=== PATIENT | male | born 1955 | race Caucasian/White ===

== ENCOUNTER 2025-04-04 13:19 | Emergency (ER) | payer MEDICARE, SELFPAY ==
[2025-04-04] VITALS (7 sets, daily range): BP systolic 136–153; BP diastolic 79–99; BMI 22.3
[2025-04-04 13:35] LABS: Hematocrit 46.7 % (39.0-52.0); Hemoglobin 15.6 g/dL (13.0-18.0); Mean Corp Hgb Conc. 33.4 g/dL (33.0-37.0); Mean Corpuscular Volume 84.8 fL (80.0-94.0); Nucleated Red Blood Cells % 0 % (-); Platelet Count 231 10^3/uL (130-400); Red Cell Dist. Width 14.6 % (11.5-14.5)
[2025-04-04 13:49] LABS: ALT (SGPT) 27 U/L (0-50); AST (SGOT) 26 U/L (17-59); Albumin 4.7 g/dl (3.5-5.0); Alkaline Phosphatase 80 U/L (38-126); Blood Urea Nitrogen 22 mg/dl (9-20); Calcium 9.7 mg/dl (8.4-10.2); Carbon Dioxide 24 mmol/L (22-30); Chloride 107 mmol/L (98-107); Glucose 107 mg/dl (70-99); Potassium 4.3 mmol/L (3.5-5.1); Sodium 139 mmol/L (135-145); Total Protein 7.6 g/dl (6.3-8.2); eGFR > 60.00
[2025-04-04] MEDS: NSS 1000 IV (15:08)
[2025-04-04] MEDS: TORADOL 15 MG IV (15:09)
[2025-04-04] MEDS: DILAUDID 1 MG IV (15:09)
[2025-04-04] MEDS: ZOFRAN 4 MG IV (15:09)
--- NOTE | 2025-04-04 15:11 | ED.GENMED ---
History of Present Illness
General
Chief Complaint: Flank Pain
Source: patient, records, spouse and previous radiology exam
Exam Limitations: none
Time Seen by Provider: 04/04/25 14:27
Nursing documentation reviewed up to this point in time: agreed with
History of Present Illness
History of Present Illness:
69-year male left flank pain with left lower abdominal pain subacute onset is worsening over the past 4 days nausea without vomiting, no fevers, had a right sided ureteral stone requiring surgery Dr. De La Garza previously, he was told at that time that he
had stones in his left kidney and to be aware of any left-sided symptoms
Has had no pain meds at home
Past History
Past History
ED Past Medical History: Asthma, CAD, HTN and Hypercholesterolemia
ED Past Surgical History: Appendectomy and Cardiac (PTCA with stent)
Social History
Tobacco: Non-smoker
Alcohol: None
Drug: None
Personal:
Living: with family
Employment: Employed
Family History
Family History: Negative Early CAD or Sudden
Review of Systems
Review of Systems
All Other Systems: Not applicable
Constitutional: Denies fever or fatigue
EENT: Reports no symptoms
Respiratory: Reports no symptoms
Cardiac: Reports no symptoms
ABD/GI: Reports abdominal pain and nausea
: Reports flank pain and bleeding
Musculoskeletal: Reports no symptoms
Neurological: Reports no symptoms
Endocrine: Reports no symptoms
Course
Orders/Labs/Results
Orders:
Orders
04/04/25 13:24
CT Abd/pelvis Wo Iv Cont Urgent
Comment:
Reason For Exam: left flank pain
Urinalysis Reflex To Culture Urgent
Date Specimen was Collected: 04/04/25
Time Specimen was Collected: 13:25
04/04/25 13:29
Complete Blood Count/With Diff Urgent
Comprehensive Metabolic Panel Urgent
04/04/25 15:02
0.9% Sodium Chloride 1000 ml [Nss] 1,000 ml IV BOLUS
HYDROmorphone [Dilaudid] 1 mg IV NOW STA
Ketorolac [Toradol] 15 mg IV NOW STA
Ondansetron Injectable [Zofran] 4 mg IV NOW STA
Abnormal Lab Results
04/04/25
13:29
RDW 14.6 H %
(11.5-14.5)
MPV 10.7 H fL
(7.4-10.4)
BUN 22 H mg/dl
(9-20)
Glucose 107 H mg/dl
(70-99)
Total Bilirubin 1.6 H mg/dl
(0.2-1.3)
04/04/25 13:29
04/04/25 13:29
Vital Signs
Initial and Last Documented VS:
Initial Vital Signs
Temp Pulse Resp BP Pulse Ox
97.7 F 81 17 153/96 99
04/04/25 13:21 04/04/25 13:21 04/04/25 13:21 04/04/25 13:21 04/04/25 13:21
Last Documented Vital Signs
Temp Pulse Resp BP Pulse Ox
97.7 F 86 23 136/96 97
04/04/25 13:21 04/04/25 17:30 04/04/25 17:30 04/04/25 17:00 04/04/25 17:30
*Pulse Oximetry
SaO2: 98
Oxygen Mode of Delivery: Room air
Update Note
Update Note:
5:[address] report noted, no stone, awaiting UA patient appears comfortable labs are reassuring
Patient updated he looks well
ED Attending Note
-
Portions of this chart may have been created with voice recognition software.� Occasional wrong word or��sound alike� substitutions may have occurred due to the inherent limitations of voice recognition software.
Discharge Plan
Departure
Patient with high blood pressure during this ER visit?: No
Condition: Good
Discharge Problem:
Back pain
Instructions: Low back pain in adults, Back Precautions, Low back pain - ED (DC)
Prescriptions:
New
ibuprofen 600 mg tablet
600 mg PO Q6H PRN (Reason: Pain) Qty: 20 0RF
oxycodone 5 mg tablet
5 mg PO Q8H PRN (Reason: Pain) Qty: 10 0RF
No Action
simvastatin 40 MG tablet
40 mg PO DAILY
metoprolol tartrate 50 MG tablet
25 mg PO BID
Referrals:
NONE,* [Family Provider, Internal Medicine]
[facility] [Provider Group] - Next open appointment
Interventions
Interventions:
*Risk Screen - Suicide Last Done: 04/04/25 13:23
*General Assessment Last Done: 04/04/25 13:23
*Neglect/Abuse Screening Last Done: 04/04/25 13:23
*ED- Fall Risk Assessment Last Done: 04/04/25 14:36
*ED COVID-19 Vaccine History Last Done: 04/04/25 13:23
DE-Wtkofi-Lbbcnhsoqb Assessment Last Done: 04/04/25 14:47
ED-Male Genitourinary Assessment Last Done: 04/04/25 14:47
Discharge Date and Time
Print Language: THAI
[2025-04-04 18:59] LABS: Urine Character Clear (Clear)
[2025-04-04 19:11] LABS: Urine Squamous Cell 0-2 /LPF (Few)
== END 2025-04-04 19:00 | disposition home or self-care (01) ==
LOC: EMR 13:19
PROVIDERS: Physician Assistant Medical; EMERGENCY PHYSICIAN Emergency Medicine
DX: M54.9 Dorsalgia, unspecified (principal); I25.10 Atherosclerotic heart disease of native coronary artery without angina pectoris; I10 Essential (primary) hypertension; E78.00 Pure hypercholesterolemia, unspecified; J45.909 Unspecified asthma, uncomplicated; Z87.442 Personal history of urinary calculi; Z95.5 Presence of coronary angioplasty implant and graft
CPT/HCPCS: 99284; 96374; 96375 ×2; 96361; 74176; 80053; 81003; 81015; 85025; 87086